=== PATIENT | female | born 1960 | race Caucasian/White ===

== ENCOUNTER → 2019-08-23 | Outpatient (CLI) | payer MEDICARE, MEDICAID ==
[~2019-08-23] VITALS: Ht 162.6 cm; Wt 70.3 kg
[~2019-08-23] MED LIST: 00186-0370-20 IH; ALDACTONE 25MG25 M1 PO; ELIQUIS 5MG PO; LASIX 40MG TABL40 MG PO; PROVENTIL0.09 MG/A1 IH; RT SPIRIVA18 MCG IH; TOPROL XL 25MG25 MG PO
[2019-08-23 09:06] VITALS: BP 102/62; PULSE 71
--- NOTE | 2019-08-23 09:20 | NUR ---
Dr Resendiz come to talk with pt regarding biopsy. Dr Resendiz stated there is no need for a biopsy at this time. Pt int removed and pt up to get dressed. Pt out to car per ambulation.
== END ==
LOC: COL.RAD 08:50
DX: R91.1 Solitary pulmonary nodule (principal)

== ENCOUNTER 2021-03-14 06:31 | Outpatient (CLI) | payer MEDICARE, MEDICAID ==
[2021-03-14] VITALS (16 sets, daily range): BP systolic 99–124; BP diastolic 56–81; PULSE 69–77
[~2021-03-14] VITALS: Ht 162.6 cm; Wt 65.0 kg
[~2021-03-14 06:31] MED LIST changes: +OXY IR5 MG PO; +TYLENOL 325MG325 MG PO
[2021-03-14] MEDS ORDERED: K-DUR20 MEQ PO (07:10)
[2021-03-14] MEDS ORDERED: DALIRESP500 MCG PO (07:11)
[2021-03-14] MEDS ORDERED: INCRUSE EL62.5 MCG/A IH (07:13)
--- NOTE | 2021-03-14 08:10 | NUR ---
Pt to ct per ambulation. Denies pain at this time. pt positioned on CT table with left side down and tilted with pillows. Monitors applied and O2 on at 2L/NC.
--- NOTE | 2021-03-14 08:40 | NUR ---
Specimens obtained by Dr Shoemaker and placed in formalin. Specimen labeled.
--- NOTE | 2021-03-14 08:45 | NUR ---
pt coughed up a small amount of blood. Pt sitting up on ct table. Pt reports feeling ok just needed to sit up. Bandaid to right side clean dry and intact. Pt moves over to cart. [id number] pt to xray for initial chest xray. no further coughing of blood. Tissues available if needed.
--- NOTE | 2021-03-14 11:15 | NUR ---
Pt ready for discharge, repeat chest xray was obtained and Dr. Kessler came to bs to discuss discharge instructions with pt. Pt denied questions. IV dc'd with cath intact. pt to xray via wheelchair.
== END 2021-03-14 17:38 | disposition home or self-care (01) ==
LOC: COL.RAD 06:31
DX: R59.0 Localized enlarged lymph nodes (principal); Z95.0 Presence of cardiac pacemaker
CPT/HCPCS: J3010